=== PATIENT | male | born 1980 | race Caucasian/White ===

== ENCOUNTER 2019-10-05 09:45 | Emergency (ER) | payer OTHER ==
[~2019-10-05] VITALS: Ht 175.3 cm; Wt 90.7 kg
[2019-10-05] MEDS ORDERED: NOHOMEMEDICATIONS (10:00)
[2019-10-05 10:02] LABS: URINE BILIRUBIN NEGATIVE (Negative); URINE BLOOD 2+ (Negative); URINE CLARITY CLEAR; URINE COLOR YELLOW; URINE GLUCOSE-RANDOM NEGATIVE (Negative); URINE KETONES NEGATIVE (Negative); URINE LEUKOCYTES-REFLEX NEGATIVE (Negative); URINE NITRITE-REFLEX NEGATIVE (Negative); URINE PROTEIN NEGATIVE (Negative); URINE SPECIFIC GRAVITY 1.025 (1.005-1.030); URINE UROBILINOGEN 0.2 E.U./dl (0.2-1.0)
[2019-10-05 10:10] LABS: ABSOLUTE EOSINOPHILS 0.1 thou/uL (0.0-0.7); ABSOLUTE LYMPHOCYTES 1.4 thou/uL (0.8-5.3); ABSOLUTE MONOCYTES 0.9 thou/uL (0.0-1.2); ABSOLUTE NEUTROPHILS 8.6 thou/uL (1.6-8.1); BASOPHILS 0.4 %; EOSINOPHILS 0.9 %; HEMATOCRIT 46.6 % (42.0-52.0); HEMOGLOBIN 16.1 gm/dL (14.0-18.0); LYMPHOCYTES 12.7 %; MCHC 34.7 g/dL (28.0-37.0); MCV 86.6 fL (80.0-100.0); MONOCYTES 7.9 %; MPV 6.7 fl. (7.2-11.1); NUCLEATED RBCS 0 /100WBC; PLATELET COUNT* 347 thou/uL (150-400); POLYS 78.1 %; RBC 5.37 mil/uL (4.50-6.00); RDW-CV 12.7 % (10.5-14.5); WBC 11.1 thou/uL (4.0-11.0)
[2019-10-05 10:18] LABS: CALCIUM 9.5 mg/dL (8.5-10.1); CREATININE 1.2 mg/dL (0.6-1.3); POTASSIUM 3.6 mmol/L (3.5-5.1)
[2019-10-05 10:18] LABS: BACTERIA-REFLEX 1-9 Few /HPF (None Seen); CASTS None Seen /LPF (None Seen); CRYSTALS None Seen /LPF (None Seen); MUCUS 0-3 Light strn/LPF (None Seen); SQUAMOUS 0-3 Few /LPF (0-3); URINE RBC 3-10 Few /HPF (0-2); URINE WBC-REFLEX 0-5 Rare /HPF (0-5)
[2019-10-05 10:22] LABS: ALBUMIN 4.4 g/dL (3.4-5.0); TOTAL BILIRUBIN 0.5 mg/dL (<0.1-1.0); TOTAL PROTEIN 7.9 g/dL (6.4-8.2)
[2019-10-05] MEDS ORDERED: ZOFRAN ODT4 MG PO (12:03)
[2019-10-05] MEDS ORDERED: HYDROCODON-ACE1 EAC7 PO (12:03)
[2019-10-05 12:27] VITALS: BP 119/72
--- NOTE | 2019-10-05 15:25 | EKG ---
[place] [address] ELECTROCARDIOGRAM REPORT Name: THEE ANDREWS Room: [facility]#: [id number] Admission: 10/05/19 Attend Phys: Discharge: 10/05/19 Date of : 78 Report #: [id number] THIS REPORT FOR: //name// [facility] ED Test Date: 2019-10-05 Test Time: 10:15:51 Pat Name: THEE ANDREWS Department: Room: Gender: M Per Diem Rn: MS : 1980 Requested By: Jenise Nolan Order Number: [id number] MD: Shahbaz Mcmillan Measurements Intervals [place] Rate: 63 P: 59 MT: 164 QRS: 29 QRSD: 99 T: 45 QT: 407 QTc: 417 Interpretive Statements sinus arrhythmia ST elev, probable normal early repol pattern No previous ECG available for comparison Electronically Signed On 10-05-2019 15:24:43 [employer] by Shahbaz Mcmillan [email or web address] <ELECTRONICALLY SIGNED> By: Shahbaz Mcmillan MD, [facility] 10/05/19 1524 1015 1015 Shahbaz Mcmillan MD, FACC /EPI
== END 2019-10-05 12:28 | disposition home or self-care (01) ==
LOC: M.ERS 09:45
PROVIDERS: Personal Emergency Response Attendant
DX: N23 Unspecified renal colic (principal); R11.2 Nausea with vomiting, unspecified; Z90.49 Acquired absence of other specified parts of digestive tract